=== PATIENT | male | born 1995 | race African-American/Black ===

== ENCOUNTER 2021-05-30 10:26 | Emergency (ER) | payer OTHER ==
[~2021-05-30] VITALS: Ht 160 cm; Wt 74.8 kg
[2021-05-30] MEDS ORDERED: ANALPRAM HC 2.530 GM PR (11:54)
[2021-05-30] MEDS ORDERED: MIRALAX17 GM PO (11:55)
== END 2021-05-30 12:09 | disposition home or self-care (01) ==
LOC: FSED 10:50
DX: K62.89 Other specified diseases of anus and rectum (principal); K60.2 Anal fissure, unspecified
CPT/HCPCS: 99282